=== PATIENT | female | born 1980 | race Two or more races ===

== ENCOUNTER 2019-07-06 15:46 | Emergency (ER) | payer BC, OTHER ==
[~2019-07-06] VITALS: Ht 167.6 cm; Wt 66.5 kg
--- NOTE | 2019-07-06 16:04 | NUR ---
PT AMBULATED TO THE ROOM W/ A STEADY GAIT.
--- NOTE | 2019-07-06 16:10 | NUR ---
THIS IS A 39 YO F W/ C/O RT UPR QUAD PAIN WHEN EATING, CONSTANT RT MID BACK PAIN AND NAUSEA WHEN EATINGX1 WEEK. PT REPORTS BMX2 TODAY. DENIES VOMITING, PAIN W/ URINTAION. PT IS RESTING ON GURNEY W/ CALL LIGHT IN REACH. AT BEDSIDE FOR ED EVAL. PT REPORTS NOT ABLE TO PROVIDE URINE AT THIS TIME. AWAITING ORDERS.
--- NOTE | 2019-07-06 16:14 | NUR ---
LAB IN ROOM.
[2019-07-06 16:21] LABS: BASOPHILS # (AUTO) 0.03 x10^3/uL (0-0.1); BASOPHILS % (AUTO) 1 % (0-1); EOSINOPHILS # (AUTO) 0.03 x10^3/uL (0-0.4); EOSINOPHILS % (AUTO) 1 % (1-7); LYMPHOCYTES % (AUTO) 36 % (22-44); MD NO; MEAN CORPUSCULAR HGB CONC 33.4 g/dL (32.4-35.8); MEAN CORPUSCULAR VOLUME 92.6 fL (80-100); MEAN PLATELET VOLUME 7.3 fL (7.4-10.4); MONOCYTES # (AUTO) 0.37 x10^3/uL (0.2-0.8); MONOCYTES % (AUTO) 9 % (2-9); NEUTROPHILS % (AUTO) 54 % (42-75); PLATELET COUNT 229 x10^3/uL (130-400); RED BLOOD COUNT 4.05 x10^6/uL (3.82-5.3); RED CELL DISTRIBUTION WIDTH 13.1 % (9.6-15.2)
[2019-07-06 16:35] LABS: ALANINE AMINOTRANSFERASE 21 U/L (12-78); ALBUMIN 4.1 g/dL (3.4-5.0); ANION GAP 4 mmol/L (5-15); CALCIUM 8.5 mg/dL (8.5-10.1); CHLORIDE 106 mmol/L (98-107); CREATININE 0.77 mg/dL (0.55-1.02)
[2019-07-06 16:37] LABS: ALKALINE PHOSPHATASE 58 U/L (45-117); BILIRUBIN,TOTAL 0.5 mg/dL (0.2-1.0); TOTAL PROTEIN 7.8 g/dL (6.4-8.2)
--- NOTE | 2019-07-06 16:48 | NUR ---
PT REPORTS STILL UNABLE TO PROVIDE URINE.
--- NOTE | 2019-07-06 17:28 | NUR ---
URINE COLLECTED AND SENT TO LAB. US IN ROOM.
[2019-07-06 17:40] LABS: CULTURE INDICATED? YES; MICROSCOPIC INDICATED
[2019-07-06 18:08] VITALS: BP 120/70
--- NOTE | 2019-07-06 18:12 | NUR ---
PT RESTING ON Nexavis W/ CALL LIGHT IN REACH, AWAITING US RESULTS.
--- NOTE | 2019-07-06 18:32 | NUR ---
ALL TESTS RESULTED. PT IS UP FOR RECHECK AT THIS TIME.
--- NOTE | 2019-07-06 19:24 | NUR ---
Patient given discharge instructions and they have confirmed that they understand the instructions. Patient ambulatory with steady gait.
[2019-07-06 20:03] LABS: HCG UR SG 1.015 (1.003-1.030)
== END 2019-07-06 19:26 | disposition home or self-care (01) ==
LOC: ED 17:07
DX: R10.13 Epigastric pain (principal)
CPT/HCPCS: 36415; 76700; 80053; 81001; 81025; 83690; 85025; 87086; 99284

== ENCOUNTER 2019-07-23 22:34 | Emergency (ER) | payer OTHER ==
[~2019-07-23] VITALS: Ht 167.6 cm; Wt 66.2 kg
[2019-07-23] MEDS ORDERED: LORazepam 2 MG/ML, 1ML ONE (22:46)
[2019-07-23] MEDS ORDERED: KETOROLAC 30 MG/1 ML ONE (22:46)
[2019-07-23] MEDS ORDERED: SODIUM CHLORIDE FLUSH 10ML SYR IVF ONE (23:00)
[2019-07-23] MEDS ORDERED: KETOROLAC 30 MG/1 ML IVPush ONE (23:00)
[2019-07-23] MEDS ORDERED: LORazepam 2 MG/ML, 1ML IVPush ONE (23:00)
[2019-07-23 23:08] LABS: BASOPHILS # (AUTO) 0.02 x10^3/uL (0-0.1); BASOPHILS % (AUTO) 1 % (0-1); EOSINOPHILS # (AUTO) 0.03 x10^3/uL (0-0.4); EOSINOPHILS % (AUTO) 1 % (1-7); LYMPHOCYTES # (AUTO) 1.28 x10^3/uL (1-3.4); LYMPHOCYTES % (AUTO) 37 % (22-44); MD NO; MEAN CORPUSCULAR HEMOGLOBIN 30.6 pg (27.0-34.8); MEAN CORPUSCULAR HGB CONC 33.3 g/dL (32.4-35.8); MEAN CORPUSCULAR VOLUME 91.8 fL (80-100); MEAN PLATELET VOLUME 7.6 fL (7.4-10.4); MONOCYTES # (AUTO) 0.24 x10^3/uL (0.2-0.8); MONOCYTES % (AUTO) 7 % (2-9); NEUTROPHILS % (AUTO) 55 % (42-75); PLATELET COUNT 238 x10^3/uL (130-400); RED BLOOD COUNT 3.84 x10^6/uL (3.82-5.3); RED CELL DISTRIBUTION WIDTH 12.8 % (9.6-15.2)
[2019-07-23 23:15] LABS: ALANINE AMINOTRANSFERASE 18 U/L (12-78); ALBUMIN 3.7 g/dL (3.4-5.0); ANION GAP 6 mmol/L (5-15); CALCIUM 8.2 mg/dL (8.5-10.1); CHLORIDE 107 mmol/L (98-107); CREATININE 0.92 mg/dL (0.55-1.02)
[2019-07-23 23:20] LABS: ALKALINE PHOSPHATASE 55 U/L (45-117); BILIRUBIN,TOTAL 0.5 mg/dL (0.2-1.0); TOTAL PROTEIN 7.2 g/dL (6.4-8.2); TROPONIN I < 0.015 ng/mL (0.000-0.045)
--- NOTE | 2019-07-23 23:23 | NUR ---
PT STATES FEELS MORE RELAXED AT THIS TIME HOWEVER THE PAIN HAS ONLY SUBSIDED FROM 10/24 TO 09/23. POC DISCUSSED. PT DENIES FURTHER NEEDS AT THIS TIME. CALL LIGHT ON LAP. LABS PENDING.
[2019-07-24] MEDS ORDERED: OMNIPAQUE 350 MG/ML, 100ML BOTTLE ONE (00:08)
--- NOTE | 2019-07-24 00:38 | NUR ---
PT ASSISTED TO RESTROOM AND BACK INTO BED. PT AMBULATES INDEPENDENTLY. PT DENIES FURTHER NEEDS AT THIS TIME. AWAITING CTA RESULTS. CALL LIGHT ON LAP.
--- NOTE | 2019-07-24 01:22 | NUR ---
ASSUMED CARE OF PT.
[2019-07-24 01:38] VITALS: BP 116/61
--- NOTE | 2019-07-24 01:40 | NUR ---
PATIENT DENIES PAIN AT THIS TIME. 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 DENIES CURRENT NEEDS.
== END 2019-07-24 02:04 | disposition home or self-care (01) ==
LOC: ED 23:11
DX: R07.9 Chest pain, unspecified (principal); R00.0 Tachycardia, unspecified
CPT/HCPCS: 36415; 71045; 71275; 80053; 84484; 84703; 85025; 85379; 93005; 96374; 96375; 99285; J1885; J2060; Q9967

== ENCOUNTER 2020-02-19 09:30 | Emergency (ER) | payer OTHER ==
[~2020-02-19] VITALS: Ht 167.6 cm; Wt 68.0 kg
[2020-02-19] MEDS ORDERED: ONDANSETRON ODT 4 MG ONE (10:11)
[2020-02-19] MEDS ORDERED: KETOROLAC 30 MG/1 ML ONE (10:11)
[2020-02-19] MEDS ORDERED: KETOROLAC 30 MG/1 ML IM ONE (10:30)
[2020-02-19] MEDS ORDERED: ONDANSETRON ODT 4 MG PO ONE (10:30)
[2020-02-19 10:50] VITALS: BP 123/71
[2020-02-19 10:51] LABS: BASOPHILS % (AUTO) 1 % (0-1); EOSINOPHILS % (AUTO) 0 % (1-7); LYMPHOCYTES % (AUTO) 30 % (22-44); MEAN CORPUSCULAR HEMOGLOBIN 30.2 pg (27.0-34.8); MEAN CORPUSCULAR HGB CONC 33.4 g/dL (32.4-35.8); MEAN PLATELET VOLUME 7.7 fL (7.4-10.4); MONOCYTES % (AUTO) 8 % (2-9); NEUTROPHILS % (AUTO) 60 % (42-75); PLATELET COUNT 215 x10^3/uL (130-400); RED BLOOD COUNT 4.18 x10^6/uL (3.82-5.3); RED CELL DISTRIBUTION WIDTH 13.4 % (9.6-15.2)
[2020-02-19 10:57] LABS: MD NO
== END 2020-02-19 11:08 | disposition home or self-care (01) ==
LOC: ED 10:43
DX: U07.1 COVID-19 (principal); R19.7 Diarrhea, unspecified; R51.9 Headache, unspecified
CPT/HCPCS: 36415; 71045; 85025; 87635; 96372; 99284; J1885; Q0162

== ENCOUNTER → 2020-06-05 | Outpatient (CLI) | payer OTHER ==
[2020-06-05 08:53] LABS: BASOPHILS % (AUTO) 1 % (0-1); EOSINOPHILS % (AUTO) 1 % (1-7); LYMPHOCYTES % (AUTO) 25 % (22-44); MEAN CORPUSCULAR HEMOGLOBIN 30.8 pg (27.0-34.8); MEAN CORPUSCULAR HGB CONC 33.8 g/dL (32.4-35.8); MEAN PLATELET VOLUME 7.5 fL (7.4-10.4); MONOCYTES % (AUTO) 6 % (2-9); NEUTROPHILS % (AUTO) 66 % (42-75); PLATELET COUNT 213 x10^3/uL (130-400); RED BLOOD COUNT 4.29 x10^6/uL (3.82-5.3); RED CELL DISTRIBUTION WIDTH 12.8 % (9.6-15.2)
[2020-06-05 08:58] LABS: MD NO
[2020-06-05 09:05] LABS: ALANINE AMINOTRANSFERASE 20 U/L (12-78); ANION GAP 5 mmol/L (5-15); CALCIUM 8.4 mg/dL (8.5-10.1); CHLORIDE 106 mmol/L (98-107); CHOLESTEROL, TOTAL 143 mg/dL (140-239); CREATININE 0.76 mg/dL (0.55-1.02); TRIGLYCERIDES 53 mg/dL (50-200); VLDL CHOLESTEROL 11 mg/dL (0-25)
[2020-06-05 09:15] LABS: ALKALINE PHOSPHATASE 56 U/L (45-117); BILIRUBIN,TOTAL 0.6 mg/dL (0.2-1.0); CHOL/HDL RATIO 2.2; HDL CHOL % 46 % (28-40); HDL CHOLESTEROL (DIRECT) 66 mg/dL (40-60); LDL CHOLESTEROL,CALCULATED 66 mg/dL (54-169); TOTAL PROTEIN 7.7 g/dL (6.4-8.2)
== END | disposition home or self-care (01) ==
LOC: LAB 08:33
PROVIDERS: ATTEND Internal Medicine
DX: U07.1 COVID-19 (principal); Z13.220 Encounter for screening for lipoid disorders; Z13.1 Encounter for screening for diabetes mellitus; L65.9 Nonscarring hair loss, unspecified; R06.02 Shortness of breath; Z82.3 Family history of stroke; Z83.3 Family history of diabetes mellitus; Z83.438 Family history of other disorder of lipoprotein metabolism and other lipidemia
CPT/HCPCS: 36415; 80053; 80061; 82306; 83036; 84443; 85025